=== PATIENT | male | born 1945 | race Caucasian/White ===

== ENCOUNTER → 2022-06-19 11:05 | Outpatient (CLI) | payer MEDICARE, SELFPAY ==
--- NOTE | 2022-06-19 11:08 | DI.MRI.S_ITS ---
PROCEDURE: MR KNEE RT WO CON INDICATIONS: Pain in right knee TECHNIQUE: Noncontrast sagittal PD fast spin echo and T2 fast spin echo with fat saturation, sagittal 3-D FLASH with fat saturation; coronal T1 spin echo and PD fast spin echo with fat saturation, and axial PD fast spin echo with fat saturation through the knee. COMPARISON: [facility], MR, KNEE WITHOUT CONTRAST, 03/15/2014, 10:12. FINDINGS: Image quality: Excellent. Menisci: There is linear horizontal high T2 signal intensity traversing the inner, middle, and peripheral thirds of the posterior horn medial meniscus, demonstrating inferior articular surface extension, indicating horizontal tearing. There is new amorphous high signal intensity within the inner, middle, and peripheral thirds of the anterior horn and body of the lateral meniscus. Increased oblique high T2 signal intensity within the lateral meniscal body, involving the inner, middle, and peripheral thirds, demonstrating inferior articular surface extension. Lateral extrusion of the lateral meniscus. Cruciate ligaments: The anterior and posterior cruciate ligaments appear intact. Medial structures: The medial collateral ligament appears intact. Visualized portions of the pes anserinus tendons appear normal. No abnormal bursal fluid. Lateral structures: The lateral collateral ligament demonstrates moderate T2 signal elevation at the femoral origin. The long and short heads of the biceps femoris tendon appear intact. The popliteus tendon appears normal. Iliotibial band appears normal. Anterior structures: The quadriceps and patellar tendons appear intact. Patellar alignment is normal. No femoral trochlear dysplasia or ventral trochlear prominence. No edema in the infrapatellar fat pad. Bones and cartilage: No bone marrow contusions or fractures. There is new mild subchondral ill-defined T2 signal elevation within the mid weight-bearing aspect of the lateral tibial plateau. There is mild tricompartmental periarticular osteophyte formation. Mild articular cartilage loss diffusely overlies the weight-bearing aspects of the medial femoral condyle and medial tibial plateau. Progressive, severe articular cartilage loss overlies the weight-bearing aspects of the lateral femoral condyle and lateral tibial plateau. There is moderate articular cartilage loss overlying the medial and lateral patellar facets. Joint space: There is a small knee joint effusion and a small ganglion cyst along the popliteus. Trace Guidry's cyst. Normal appearing synovial plicae are incidentally noted. IMPRESSION: 1. Medial meniscal tearing. 2. Progressive complex tearing of the lateral meniscus. 3. Tricompartmental osteoarthritis with associated articular cartilage loss. 4. Lateral collateral ligament tear. 5. Knee joint effusion, trace Guidry's cyst, and small ganglion cyst along the popliteus. Dictated by: Wilber Gupta M.D. on 06/19/2022 at 13:07 Transcribed by: GLENN on 06/19/2022 at 13:12 Approved by: Wilber Gupta M.D. on 06/19/2022 at 16:27
== END ==
PROVIDERS: Referring Provider Family Medicine; Visit Provider Family Medicine
DX: S83.271A Complex tear of lateral meniscus, current injury, right knee, initial encounter (principal); S83.241A Other tear of medial meniscus, current injury, right knee, initial encounter; S83.421A Sprain of lateral collateral ligament of right knee, initial encounter; M17.11 Unilateral primary osteoarthritis, right knee; M25.461 Effusion, right knee; M67.461 Ganglion, right knee; M25.561 Pain in right knee
CPT/HCPCS: 73721